=== PATIENT | male | born 1995 | race Caucasian/White ===

== ENCOUNTER 2022-08-08 08:57 | Inpatient (IN) | payer SELFPAY ==
[2022-08-08 09:57] LABS: #Basophils 0.1 thou/uL (0.0-0.2); #Eosinphils 0.1 thou/uL (0.0-0.7); #Lymphocytes 1.7 thou/uL (1.20-3.40); #Monocytes 0.6 thou/uL (0.11-0.59); #Neutrophils 7.2 thou/uL (1.40-6.50); %Eosinophils 0.6 % (0.0-10.0); %Lymphocytes 17.9 % (21.0-51.0); %Monocytes 5.8 % (0.0-10.0); %Neutrophils 74.8 % (42.0-75.0); Hemoglobin 14.8 g/dL (14.0-18.0); Mean Corpuscular HGB CONC 33.2 g/dL (32.0-36.0); Mean Corpuscular Hemoglobin 35.5 pg (27.0-31.0); Mean Platelet Volume 6.7 fL (7.4-10.4); Platelet Count 254 thou/uL (130-400); RBC Distribution Width 13.1 % (11.5-14.5); Red Blood Cell (RBC) Count 4.17 mill/uL (4.70-6.10); White Blood Cell (WBC) Count 9.6 thou/uL (4.8-10.8)
[2022-08-08 10:05] LABS: ALT (SGPT) 62 U/L (8-55); AST (SGOT) 138 U/L (5-34); Albumin 3.8 g/dL (3.5-5.0); Alkaline Phosphatase 67 U/L (40-110); Anion Gap 21 mmol/L (10-20); BUN (Urea Nitrogen) 5 mg/dL (8.9-20.6); Bilirubin, Total 0.5 mg/dL (0.2-1.2); Calc. Creatinine Clearance 0 mL/min (70-130); Calcium 8.6 mg/dL (7.8-10.44); Carbon Dioxide 18 mmol/L (22-29); Chloride 104 mmol/L (98-107); Estimated GFR 91; Globulin 2.5 g/dL (2.4-3.5); Glucose 148 mg/dL (70-105); Potassium 3.6 mmol/L (3.5-5.1); Protein, Total 6.3 g/dL (6.0-8.3); Sodium 139 mmol/L (136-145)
[2022-08-08 10:14] LABS: MDiff Complete? YES; Macrocytosis SLIGHT = 6-15 cells (100X) (0-5/hpf); Platelet Morphology Comment Appears Adequate
[2022-08-08] MEDS ORDERED: levETIRAcetam 500 MG/5 ML VIAL ONE (10:57)
[2022-08-08] MEDS ORDERED: Ondansetron PF 4 MG/2 ML Vial IVP PRN (10:59)
[2022-08-08] MEDS ORDERED: Magnevist 469MG/ML 20 ML VIAL ONE (11:16)
[2022-08-08 12:06] LABS: Lactic Acid 1.7 mmol/L (0.5-2.2)
[2022-08-08] MEDS ORDERED: Lorazepam 2 MG/ML VIAL SLOW IVP PRN (14:08)
[2022-08-08] MEDS ORDERED: Heparin 5,000 UNITS/ML VIAL SC SCH (15:00)
[2022-08-08 20:32] VITALS: BMI 25.9
[2022-08-08] MEDS: Acetaminophen 325 MG TAB PO PRN (22:07)
[2022-08-08] MEDS: levETIRAcetam 500 MG TAB PO SCH (22:08)
[2022-08-08] MEDS: HYDROcodone/Acetaminophen 5/325 mg Tablet PO PRN (23:15)
[2022-08-09 00:24] VITALS: TEMP 98.2
[2022-08-09] MEDS: HYDROcodone/Acetaminophen 5/325 mg Tablet PO PRN (05:41)
[2022-08-09 05:44] LABS: #Eosinphils 0.1 thou/uL (0.0-0.7); #Lymphocytes 2.3 thou/uL (1.20-3.40); #Monocytes 0.9 thou/uL (0.11-0.59); #Neutrophils 5.6 thou/uL (1.40-6.50); %Basophils 0.5 % (0.0-1.0); %Eosinophils 0.6 % (0.0-10.0); %Lymphocytes 25.9 % (21.0-51.0); %Monocytes 10.3 % (0.0-10.0); %Neutrophils 62.6 % (42.0-75.0); Hemoglobin 13.7 g/dL (14.0-18.0); Mean Corpuscular HGB CONC 33.3 g/dL (32.0-36.0); Mean Corpuscular Hemoglobin 35.3 pg (27.0-31.0); Mean Platelet Volume 6.9 fL (7.4-10.4); Platelet Count 210 thou/uL (130-400); Red Blood Cell (RBC) Count 3.87 mill/uL (4.70-6.10); White Blood Cell (WBC) Count 8.9 thou/uL (4.8-10.8)
[2022-08-09 06:23] LABS: Anion Gap 10 mmol/L (10-20); BUN (Urea Nitrogen) 4 mg/dL (8.9-20.6); Calc. Creatinine Clearance 171 mL/min (70-130); Calcium 8.7 mg/dL (7.8-10.44); Carbon Dioxide 27 mmol/L (22-29); Chloride 103 mmol/L (98-107); Estimated GFR 123; Glucose 81 mg/dL (70-105); Sodium 137 mmol/L (136-145)
[2022-08-09] MEDS: levETIRAcetam 500 MG TAB PO SCH (09:13)
[2022-08-09] MEDS: Acetaminophen 325 MG TAB PO PRN (09:13)
[2022-08-09 09:59] LABS: Amphetamine Not Detected (NotDetected); Barbiturates Screen Not Detected (NotDetected); Benzodiazepine Screen Not Detected (NotDetected); Cocaine Metabolite Screen Not Detected (NotDetected); Methadone Not Detected (NotDetected); Methamphetamine Not Detected (NotDetected); Opiate Screen Detected (NotDetected); Oxycodone Screen Not Detected (NotDetected); Phencyclidine (PCP) Not Detected (NotDetected); THC/Cannabinoid Screen Not Detected (NotDetected); Tricyclic Screen Not Detected (NotDetected)
[2022-08-09] MEDS ORDERED: Potassium Chloride 20 MEQ TAB PO SCH (12:45)
[2022-08-09] MEDS ORDERED: Lorazepam 2 MG/ML VIAL IM PRN (12:53)
[2022-08-09] MEDS ORDERED: Ondansetron ODT 4 MG TAB PO PRN (12:53)
[2022-08-09] MEDS ORDERED: Lorazepam 1 MG TAB PO PRN (12:53)
[2022-08-09] MEDS ORDERED: Lorazepam 1 MG TAB PO SCH (13:00)
[2022-08-09] MEDS ORDERED: Electrolyte Replacement Protocol 1 EACH FS SCH (13:00)
[2022-08-09] MEDS ORDERED: Multivit, Therapeutic 1 TAB PO SCH (13:30)
[2022-08-09] MEDS ORDERED: Folic Acid 1 MG TAB PO SCH (13:30)
[2022-08-09 13:44] LABS: ALT (SGPT) 51 U/L (8-55); AST (SGOT) 72 U/L (5-34); Albumin 3.6 g/dL (3.5-5.0); Alkaline Phosphatase 61 U/L (40-110); Anion Gap 12 mmol/L (10-20); BUN (Urea Nitrogen) Less than 4 mg/dL (8.9-20.6); Bilirubin, Direct 0.4 mg/dL (0.1-0.3); Bilirubin, Total 0.9 mg/dL (0.2-1.2); Calc. Creatinine Clearance 140 mL/min (70-130); Calcium 8.7 mg/dL (7.8-10.44); Carbon Dioxide 27 mmol/L (22-29); Chloride 101 mmol/L (98-107); Estimated GFR 106; Globulin 2.3 g/dL (2.4-3.5); Glucose 120 mg/dL (70-105); Magnesium 1.5 mg/dL (1.6-2.6); Phosphorus 2.8 mg/dL (2.3-4.7); Potassium 3.4 mmol/L (3.5-5.1); Protein, Total 5.9 g/dL (6.0-8.3); Sodium 137 mmol/L (136-145)
[2022-08-09] MEDS ORDERED: Magnesium 2 GM/50 ML(in water) 2 GM in Premix Bag 1 BAG IVPB SCH (14:00)
[2022-08-09] MEDS ORDERED: Thiamine HCl 200 MG/2 ML VIAL SLOW IVP SCH (14:00)
[2022-08-09 14:52] LABS: Syphilis Antibody Nonreactive (Nonreactive); Syphilis Antibody Index 0.03 S/CO (<1.00 Non-Reactive)
[2022-08-10] MEDS ORDERED: Multivit, Therapeutic 1 TAB PO SCH (09:00)
[2022-08-10] MEDS ORDERED: Folic Acid 1 MG TAB PO SCH (09:00)
[2022-08-10] MEDS ORDERED: Lorazepam 1 MG TAB PO PRN (12:53)
[2022-08-11] MEDS ORDERED: Lorazepam 1 MG TAB PO PRN (12:53)
[2022-08-11] MEDS ORDERED: Lorazepam 0.5 MG TAB PO SCH (13:00)
[2022-08-12] MEDS ORDERED: Thiamine 100 MG TAB PO SCH (09:00)
[2022-08-12 10:56] VITALS: BP 125/82
[2022-08-12] MEDS ORDERED: Lorazepam 0.5 MG TAB PO PRN (12:53)
== END 2022-08-09 16:35 | disposition home or self-care (01) | DRG 66 ==
LOC: ERS 08:57 → ERHOLD 14:06 → NEURO 19:48
PROVIDERS: ADMIT Internal Medicine; ATTEND Internal Medicine
PROC: 4A10X4Z Monitoring of Central Nervous Electrical Activity, External Approach (ICD-10-PCS; principal; 2022-08-09)
DX: I61.9 Nontraumatic intracerebral hemorrhage, unspecified (principal); F19.10 Other psychoactive substance abuse, uncomplicated; F10.10 Alcohol abuse, uncomplicated; R56.9 Unspecified convulsions; Q04.9 Congenital malformation of brain, unspecified; Z87.891 Personal history of nicotine dependence
CPT/HCPCS: 36415; 70450; 70553; 71045; 80048; 80053; 80306; 82248; 82550; 83605; 83735; 83880; 84100; 84484; 85025; 86780; 93005; 94760; 95712; 95819; 95957; 96374; A9579; J1953; J3411; J3475; U0003; U0005

== ENCOUNTER 2025-05-31 08:40 | Emergency (ER) | payer SELFPAY ==
[2025-05-31] MEDS ORDERED: levETIRAcetam 500 MG (5 mL) VIAL ONE ×2 (08:58→09:05)
[2025-05-31] MEDS ORDERED: Ondansetron PF 4 MG/2 ML Vial ONE (09:21)
== END 2025-05-31 11:48 | disposition home or self-care (01) ==
LOC: ERS 08:40
DX: G40.909 Epilepsy, unspecified, not intractable, without status epilepticus (principal); F17.210 Nicotine dependence, cigarettes, uncomplicated; Z79.899 Other long term (current) drug therapy
CPT/HCPCS: 93005; 96374; 96375; J1953; J2405

== ENCOUNTER 2025-06-08 11:20 | Emergency (ER) | payer SELFPAY ==
[2025-06-08] MEDS ORDERED: levETIRAcetam 500 MG (5 mL) VIAL ONE (11:43)
[2025-06-08 11:53] LABS: #Basophils 0.14 10x3/uL (0.0-0.2); #Eosinophils Less than 0.03 10x3/uL (0.0-0.7); #Monocytes 1.03 10x3/uL (0.11-0.59); #Neutrophils 4.82 10x3/uL (1.40-6.50); %Basophils 1.7 % (0.0-1.0); %Eosinophils 0.1 % (0.0-10.0); %Lymphocytes 27.3 % (21.0-51.0); %Monocytes 12.3 % (0.0-10.0); %Neutrophils 57.6 % (42.0-75.0); Hematocrit 39.4 % (42.0-52.0); Hemoglobin 13.5 g/dL (14.0-18.0); Mean Corpuscular Hemoglobin 33.3 pg (27.0-31.0); Mean Corpuscular Volume 97.3 fL (78.0-98.0); Platelet Count 279 10x3/uL (130-400); Red Blood Cell (RBC) Count 4.05 mill/uL (4.70-6.10); White Blood Cell (WBC) Count 8.36 10x3/uL (4.8-10.8)
[2025-06-08 12:28] LABS: ALT (SGPT) 219 U/L (Less than 45); AST (SGOT) 477 U/L (11-34); Albumin 3.8 g/dL (3.1-4.5); Alkaline Phosphatase 144 U/L (40-110); Anion Gap 25 mmol/L (10-20); BUN (Urea Nitrogen) 5 mg/dL (8.9-20.6); Bilirubin, Total 1.8 mg/dL (0.3-1.2); Calc. Creatinine Clearance 0 mL/min (70-130); Calcium 8.7 mg/dL (7.8-10.44); Carbon Dioxide 17 mmol/L (22-29); Chloride 96 mmol/L (98-107); Globulin 3.1 g/dL (2.4-3.5); Glucose 136 mg/dL (70-105); Potassium 3.6 mmol/L (3.5-5.1); Sodium 134 mmol/L (136-145)
[2025-06-08 13:28] LABS: Acetaminophen Less than 10 mcg/mL (Less than 10); Salicylate Less than 8.0 mg/dL (Less than 8.0)
== END 2025-06-08 16:15 | disposition home or self-care (01) ==
LOC: ERS 11:20
DX: R56.9 Unspecified convulsions (principal); F10.20 Alcohol dependence, uncomplicated; F17.210 Nicotine dependence, cigarettes, uncomplicated; Y90.9 Presence of alcohol in blood, level not specified
CPT/HCPCS: 36415; 70450; 80053; 80177; 80307; 84146; 85025; 93005; 95813; 96365; 96375; J1953; J2060

== ENCOUNTER 2025-07-22 21:23 | Emergency (ER) | payer SELFPAY ==
[2025-07-22] MEDS ORDERED: Adenosine 6 mg (2 mL) VIAL ONE (21:29)
[2025-07-22] MEDS ORDERED: levETIRAcetam 500 MG (5 mL) VIAL ONE (21:37)
[2025-07-22] MEDS ORDERED: Ondansetron PF 4 MG/2 ML Vial ONE ×2 (22:04→23:52)
[2025-07-22 22:09] LABS: #Basophils 0.11 10x3/uL (0.0-0.2); #Eosinophils Less than 0.03 10x3/uL (0.0-0.7); #Monocytes 0.74 10x3/uL (0.11-0.59); #Neutrophils 5.21 10x3/uL (1.40-6.50); %Basophils 1.5 % (0.0-1.0); %Eosinophils 0.0 % (0.0-10.0); %Lymphocytes 18.3 % (21.0-51.0); %Monocytes 9.8 % (0.0-10.0); %Neutrophils 69.2 % (42.0-75.0); Hematocrit 42.7 % (42.0-52.0); Hemoglobin 14.0 g/dL (14.0-18.0); Mean Corpuscular Hemoglobin 34.2 pg (27.0-31.0); Mean Corpuscular Volume 104.4 fL (78.0-98.0); Platelet Count 125 10x3/uL (130-400); Red Blood Cell (RBC) Count 4.09 mill/uL (4.70-6.10); White Blood Cell (WBC) Count 7.53 10x3/uL (4.8-10.8)
[2025-07-22 22:20] LABS: ALT (SGPT) 188 U/L (Less than 45); AST (SGOT) 652 U/L (11-34); Albumin 4.0 g/dL (3.1-4.5); Alkaline Phosphatase 138 U/L (40-110); Anion Gap 32 mmol/L (10-20); BUN (Urea Nitrogen) 4 mg/dL (8.9-20.6); Bilirubin, Total 1.9 mg/dL (0.3-1.2); Calc. Creatinine Clearance 0 mL/min (70-130); Calcium 8.6 mg/dL (7.8-10.44); Carbon Dioxide Less than 8 mmol/L (22-29); Chloride 103 mmol/L (98-107); Globulin 3.2 g/dL (2.4-3.5); Glucose 132 mg/dL (70-105); Potassium 4.1 mmol/L (3.5-5.1); Sodium 138 mmol/L (136-145)
[2025-07-22 23:25] LABS: Lipase 44 U/L (8-78)
[2025-07-22 23:28] LABS: Acetaminophen Less than 10 mcg/mL (Less than 10); Salicylate Less than 8.0 mg/dL (Less than 8.0)
[2025-07-23 00:23] LABS: ALT (SGPT) 181 U/L (Less than 45); AST (SGOT) 540 U/L (11-34); Albumin 3.9 g/dL (3.1-4.5); Alkaline Phosphatase 128 U/L (40-110); Anion Gap 24 mmol/L (10-20); BUN (Urea Nitrogen) 4 mg/dL (8.9-20.6); Bilirubin, Total 2.2 mg/dL (0.3-1.2); Calc. Creatinine Clearance 0 mL/min (70-130); Calcium 8.3 mg/dL (7.8-10.44); Carbon Dioxide 13 mmol/L (22-29); Chloride 104 mmol/L (98-107); Globulin 2.9 g/dL (2.4-3.5); Glucose 118 mg/dL (70-105); Potassium 3.9 mmol/L (3.5-5.1); Sodium 137 mmol/L (136-145)
[2025-07-23 00:47] LABS: ALT (SGPT) 170 U/L (Less than 45); AST (SGOT) 484 U/L (11-34); Albumin 3.8 g/dL (3.1-4.5); Alkaline Phosphatase 121 U/L (40-110); Anion Gap 19 mmol/L (10-20); BUN (Urea Nitrogen) 4 mg/dL (8.9-20.6); Bilirubin, Total 2.3 mg/dL (0.3-1.2); Calc. Creatinine Clearance 0 mL/min (70-130); Calcium 8.1 mg/dL (7.8-10.44); Carbon Dioxide 19 mmol/L (22-29); Chloride 101 mmol/L (98-107); Globulin 2.8 g/dL (2.4-3.5); Glucose 152 mg/dL (70-105); Potassium 4.3 mmol/L (3.5-5.1); Sodium 135 mmol/L (136-145)
== END 2025-07-23 02:11 | disposition home or self-care (01) ==
LOC: ERS 21:23
DX: G40.909 Epilepsy, unspecified, not intractable, without status epilepticus (principal); I47.10 Supraventricular tachycardia, unspecified; K70.9 Alcoholic liver disease, unspecified; Z79.899 Other long term (current) drug therapy
CPT/HCPCS: 36415; 80053; 80307; 83605; 83690; 85025; 93005; 96365; 96374; 96375; 96376; J0153; J1953; J2060